=== PATIENT | female | born 1975 | race Caucasian/White ===

== ENCOUNTER 2020-02-23 12:33 | Emergency (ER) | payer BC, OTHER ==
[~2020-02-23] VITALS: Ht 167.6 cm; Wt 73.6 kg
[2020-02-23] MEDS ORDERED: LEVO100T5 PO (12:42)
[2020-02-23] MEDS ORDERED: MORPHINE 4 MG/ML 1ML VIAL/SYRINGE (J2270) IV ONE (13:00)
[2020-02-23] MEDS ORDERED: NS 1,000 ML IV ONE ×2 (13:00)
[2020-02-23 13:14] LABS: BILIRUBIN, URINE MANUAL NEGATIVE (NEGATIVE); GLUCOSE, URINE (UA) MANUAL NEGATIVE (NEGATIVE); KETONE, URINE MANUAL NEGATIVE (NEGATIVE); UROBILINOGEN, URINE MANUAL NORMAL (NORMAL)
[2020-02-23] MEDS ORDERED: ONDANSETRON 4MG/2ML VIAL IV ONE (13:15)
[2020-02-23 13:39] LABS: BACTERIA, URINE SMALL AMOUNT; HYALINE CAST, URINE NONE SEEN /lpf (0-1); MUCUS, URINE SMALL AMOUNT (NEGATIVE); SQUAMOUS EPITHELIAL CELL URINE SMALL AMOUNT /hpf (SMALL AMT)
[2020-02-23 13:45] LABS: BASO % 0.4 % (0.0-1.0); EOS # 0.1 10^3/uL (0.0-0.5); EOS % 0.7 % (0.0-3.0); LYMPH # 2.3 10^3/uL (1.5-5.0); LYMPH % 22.2 % (24.0-44.0); MEAN CORPUSCULAR HEMOGLOBIN 31.5 pg (27.0-33.0); MEAN CORPUSCULAR HGB CONC 34.1 g/dl (32.0-36.5); MEAN CORPUSCULAR VOLUME 92.1 fl (80.0-96.0); MONO % 9.8 % (0.0-5.0); NEUTROPHILS # 6.8 10^3/uL (1.5-8.5); NEUTROPHILS % 66.6 % (36.0-66.0); PLATELET COUNT, AUTOMATED 277 10^3/uL (150-450); RED BLOOD COUNT 4.45 10^6/uL (4.00-5.40); WHITE BLOOD COUNT 10.2 10^3/uL (4.0-10.0)
[2020-02-23 14:05] LABS: ALBUMIN 4.3 GM/DL (3.2-5.2); ALT/SGPT 13 U/L (12-78); BILIRUBIN,DIRECT 0.1 MG/DL (0.0-0.2); BILIRUBIN,TOTAL 0.6 MG/DL (0.2-1.0); BLOOD UREA NITROGEN 21 MG/DL (7-18); CALCIUM LEVEL 9.2 MG/DL (8.5-10.1); CARBON DIOXIDE LEVEL 23 MEQ/L (21-32); CHLORIDE LEVEL 108 MEQ/L (98-107); CREATININE FOR GFR 0.99 MG/DL (0.55-1.30); GLOMERULAR FILTRATION RATE > 60.0 (>58); GLUCOSE, FASTING 89 MG/DL (70-100); LIPASE 101 U/L (73-393); POTASSIUM SERUM 3.6 MEQ/L (3.5-5.1); SODIUM LEVEL 137 MEQ/L (136-145); TOTAL PROTEIN 7.6 GM/DL (6.4-8.2)
[2020-02-23] MEDS ORDERED: KETOROLAC 30 MG/ML 1ML VIAL As Ordered ONE (14:07)
[2020-02-23] MEDS ORDERED: KETOROLAC 30 MG/ML 1ML VIAL IV ONE (14:15)
[2020-02-23] MEDS ORDERED: HYDROMORPHONE HCL 0.5 MG/ 0.5 ML SYRINGE (J1170 PER 1) IV ONE (14:30)
--- NOTE | 2020-02-23 15:11 | REPVR ---
PROCEDURE INFORMATION: Exam: US Pelvis Limited, Transabdominal and US Pelvis, Transvaginal Exam date and time: 02/23/2020 2:19 PM Age: 45 years old Clinical indication: Pelvic pain; Prior surgery; Surgery date: 6+ months; Surgery type: C-sec; Additional info: Severe rlq pain, R/O perf of iud TECHNIQUE: Imaging protocol: Real-time transabdominal and transvaginal pelvic ultrasound (limited) with image documentation. Transvaginal imaging was used for better evaluation of the endometrium, adnexa, and/or cervix. COMPARISON: No relevant prior studies available. FINDINGS: Uterus/cervix: The uterus is not seen as a separate structure transabdominally. Endovaginally, the uterus measures 9.3 x 5.2 by 5.6 cm. Thinning noted of the anterior lower uterine corpus indicating scar from previous Caesarean section.. The endometrial stripe measures approximately 0.38 cm. Intrauterine device is present within the uterus. Right adnexa: Transabdominally, the right ovary is not seen as a separate structure. Endovaginally, the right ovary is not seen as a separate structure. Left adnexa: Transabdominally, the left ovary is not seen as a separate structure. Endovaginally, the left ovary measures 2.8 by 1.7 by 2.1 cm and contains a complex follicle with a few internal echoes measuring 1.8 x 1.5 by 1.7 cm. Bladder: Transabdominal ultrasound of the pelvis was performed. The bladder is empty. IMPRESSION: 1. Bladder was empty. Uterus and ovaries not seen on the transabdominal portion of the study. 2. Intrauterine device in place within the uterus 3. Nonvisualization of the right ovary may be due to bowel gas. Electronically signed by: Eri García On 02/23/2020 15:11:23 PM
[2020-02-23] MEDS ORDERED: ISOVUE-370 76% 100ML VIAL As Ordered ONE (15:22)
--- NOTE | 2020-02-23 16:47 | REPVR ---
PROCEDURE INFORMATION: Exam: CT Abdomen And Pelvis With Contrast Exam date and time: 02/23/2020 3:27 PM Age: 45 years old Clinical indication: Abdominal pain; Localized; Right lower quadrant (rlq); Prior surgery; Surgery date: 6+ months; Surgery type: "rt ovary reconstruction with a cyst"; Additional info: Severe rlq pain, has had appy, R ovary not seen on US TECHNIQUE: Imaging protocol: Computed tomography of the abdomen and pelvis with intravenous contrast. Radiation optimization: All CT scans at this facility use at least one of these dose optimization techniques: automated exposure control; mA and/or kV adjustment per patient size (includes targeted exams where dose is matched to clinical indication); or iterative reconstruction. Contrast material: ISOVUE 370; Contrast volume: 100 ml; Contrast route: INTRAVENOUS (IV); COMPARISON: US PELVIC NON-OB COMPLETE 02/23/2020 2:06 PM FINDINGS: Lungs: Scattered small ground-glass densities lingula and left lower lobe. Mild thickening interlobular septa at the left lung base. Mediastinal space: Small sliding hiatal hernia. Liver: Liver measures 19 cm in craniocaudal span. There is a Reta's lobe. Gallbladder and bile ducts: Normal. No calcified stones. No ductal dilation. Pancreas: Normal. No ductal dilation. Spleen: Normal. No splenomegaly. Adrenals: Normal. No mass. Kidneys and ureters: Moderate to severe right-sided hydronephrosis and hydroureter secondary to an obstructing calculus within the right ureterovesicular junction measuring 4 mm. The nephrogram of the right kidney is less dense than the left. 1.4 cm hypodense nodule mid aspect right kidney anteriorly (45 H) Stomach and bowel: The cecum is positioned anteriorly in the pelvis on top of the bladder. Appendix: The appendix is not seen as a separate structure. Intraperitoneal space: Unremarkable. No free air. No significant fluid collection. Vasculature: Unremarkable. No abdominal aortic aneurysm. Lymph nodes: Unremarkable. No enlarged lymph nodes. Urinary bladder: Unremarkable as visualized. Reproductive: IUD present within the uterus. Bones/joints: Unremarkable. No acute fracture. Soft tissues: Unremarkable. IMPRESSION: 1. Moderate to severe right-sided hydronephrosis and hydroureter secondary to obstructing calculus in the right ureterovesicular junction. Relative decrease in density of the right nephrogram implies diminished renal function. 2. Hepatomegaly. 3. Small sliding hiatal hernia. 4. Scattered ground-glass densities at the left lung base could be related to hypoventilatory change. Pneumonitis another consideration. Clinical correlation suggested. 5. 1.4 cm hypodense nodule mid right kidney anteriorly.. This does not meet CT criteria for simple cyst. Dedicated renal CT or MR recommended. Electronically signed by: Eri García On 02/23/2020 16:46:26 PM
[2020-02-23] MEDS ORDERED: FLOM0.4C39 PO (17:06)
[2020-02-23] MEDS ORDERED: KETO10TAB PO (17:06)
[2020-02-23 17:19] VITALS: BP 140/85
== END 2020-02-23 17:40 | disposition home or self-care (01) ==
LOC: M ED 12:33
DX: N13.2 Hydronephrosis with renal and ureteral calculous obstruction (principal); R16.0 Hepatomegaly, not elsewhere classified; N28.9 Disorder of kidney and ureter, unspecified; R91.8 Other nonspecific abnormal finding of lung field; E03.9 Hypothyroidism, unspecified; Z97.5 Presence of (intrauterine) contraceptive device; Z88.1 Allergy status to other antibiotic agents; Z88.6 Allergy status to analgesic agent; Z88.5 Allergy status to narcotic agent; Z79.3 Long term (current) use of hormonal contraceptives; Z79.899 Other long term (current) drug therapy
CPT/HCPCS: 74177; 76856; 80047; 80048; 80076; 81000; 81015; 83690; 84702; 85025; 87086; 96361; 96374; 96375; 99284; J1170; J1885; J2270; J2405; Q9967

== ENCOUNTER → 2020-05-05 | Outpatient (CLI) | payer SELFPAY ==
[~2020-05-05] MED LIST: FLOM0.4C39 PO; KETO10TAB PO; LEVO100T5 PO
== END ==
LOC: M LABSMTC 14:07
PROVIDERS: ATTEND Pediatrics
DX: Z20.828 Contact with and (suspected) exposure to other viral communicable diseases (principal)